=== PATIENT | female | born 1990 | race Caucasian/White ===

== ENCOUNTER 2017-02-03 09:22 | Emergency (ER) | payer OTHER ==
[~2017-02-03] VITALS: Ht 162.6 cm; Wt 69.0 kg
[2017-02-03 09:29] VITALS: BP 133/79; PULSE 78; RESP 16; TEMP 99.1; O2SAT 98
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
[2017-02-03] MEDS ORDERED: IOHEXOL 350 MG/ML 10 ML VIAL (for RAD DIAG) IVCONTRAST ONE (10:25)
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
[2017-02-03] MEDS ORDERED: IBUP-232 PO (10:51)
== END 2017-02-03 11:06 | disposition home or self-care (01) ==
LOC: PHED 09:22
DX: S09.90XA Unspecified injury of head, initial encounter (principal); S30.1XXA Contusion of abdominal wall, initial encounter; V43.52XA Car driver injured in collision with other type car in traffic accident, initial encounter; Y92.410 Unspecified street and highway as the place of occurrence of the external cause
CPT/HCPCS: 72072; 74177; 84703; 99285; Q9967